=== PATIENT | male | born 1975 | race Caucasian/White ===

== ENCOUNTER 2019-07-02 03:22 | Emergency (ER) | payer OTHER ==
[~2019-07-02] VITALS: Ht 180.3 cm; Wt 84.1 kg
[2019-07-02 03:27] VITALS: Ht 180.3 cm; Wt 84.1 kg
[2019-07-02 03:50] LABS: BASOPHILS 0.2 % (0-2); EOSINOPHILS 3.3 % (0-7); HEMATOCRIT 47.3 % (42.0-54.0); IMMATURE GRANULOCYTES 0.2 % (0-5); LYMPHOCYTES 37.2 % (15-50); MCH 31.8 pg (26.0-34.0); MCHC 33.8 g/dL (31.0-37.0); MEAN PLATELET VOLUME 9.2 fL (7.4-10.4); MONOCYTES 7.2 % (2-11); NEUTROPHILS 51.9 % (40-80); PLATELET COUNT 250 10x3/uL (130-400); RBC 5.03 10x6/uL (4.20-6.10); RDW 12.5 % (11.5-14.5)
[2019-07-02 03:59] LABS: CALC OSMOLALITY 274 mosm/kg (275-300); CALCIUM 9.2 mg/dL (8.5-10.1); CARBON DIOXIDE 29.6 mmol/L (21.0-32.0); CHLORIDE - SERUM 103 mmol/L (98-107); CREATININE - SERUM 1.1 mg/dL (0.6-1.3); GLUCOSE 106 mg/dL (74-106); POTASSIUM - SERUM 3.5 mmol/L (3.5-5.1); SODIUM 137 mmol/L (136-145); UREA NITROGEN 16 mg/dL (7-18); eGFR NON AFRICAN AMERICAN 77 mL/min (90-120)
[2019-07-02 04:00] LABS: INR 0.97 (0.85-1.17); PROTIME 12.9 SECONDS (11.6-15.0)
[2019-07-02 04:16] LABS: ALBUMIN 3.8 g/dL (3.4-5.0); ALKALINE PHOSPHATASE 96 U/L (30-120); ALT (SGPT) 29 U/L (10-68); AMYLASE - SERUM 44 U/L (25-115); BILIRUBIN - TOTAL 0.66 mg/dL (0.2-1.3); CKMB 0.4 U/L (0.0-3.6); CREATINE KINASE 60 UL (21-232); LIPASE 100 U/L (73-393); PROTEIN - SERUM 7.5 g/dL (6.4-8.2)
[2019-07-02 04:19] LABS: TROPONIN-I < 0.017 ng/mL (0.000-0.060)
[2019-07-02] MEDS ORDERED: HYDROCODON-ACE1 EAC7 PO (08:36)
[2019-07-02] MEDS ORDERED: LEVOFLOXACIN500 MG PO (08:36)
[2019-07-02 09:19] VITALS: BP 126/91
[2019-07-05] MEDS ORDERED: LEVOFLOXACIN500 MG PO (15:33)
== END 2019-07-02 09:20 | disposition home or self-care (01) ==
LOC: D.ER 03:22
PROVIDERS: Family Medicine
DX: R10.13 Epigastric pain (principal); K80.20 Calculus of gallbladder without cholecystitis without obstruction; R07.9 Chest pain, unspecified

== ENCOUNTER 2019-07-06 06:39 | Day surgery (SDC) | payer OTHER ==
[~2019-07-06] VITALS: Ht 180.3 cm; Wt 83.9 kg
[~2019-07-06 06:39] MED LIST: HYDROCODON-ACE1 EAC7 PO; LEVOFLOXACIN500 MG PO
[2019-07-06] MEDS ORDERED: HYDROCODON-ACE1 EAC7 PO ×2 (07:41→10:10)
[2019-07-06 07:42] VITALS: BP 97/64; Ht 180.3 cm; Wt 83.9 kg
--- NOTE | 2019-07-06 11:09 | NUR ---
CONSULTED WITH ANESTHESIA - PT RATES PAIN "6" AFTER MAX MEDS. OK TO D/C TO OUTPT PER ANESTHESIA.
== END 2019-07-06 12:50 | disposition home or self-care (01) ==
LOC: D.OPS 06:39 → D.PAN 09:00 → D.OPS 09:15
PROVIDERS: ATTEND Surgery
DX: K80.20 Calculus of gallbladder without cholecystitis without obstruction (principal); F17.200 Nicotine dependence, unspecified, uncomplicated

== ENCOUNTER 2020-05-24 02:23 | Emergency (ER) | payer OTHER ==
[~2020-05-24] VITALS: Ht 180.3 cm; Wt 83.2 kg
[2020-05-24 02:28] VITALS: Ht 180.3 cm; Wt 83.2 kg
[2020-05-24 02:50] LABS: BASOPHILS 0.3 % (0-2); HEMATOCRIT 47.7 % (42.0-54.0); HEMOGLOBIN 16.3 g/dL (13.5-17.5); IMMATURE GRANULOCYTES 0.3 % (0-5); LYMPHOCYTE ABS# 2.18 10x3/uL (1.32-3.57); LYMPHOCYTES 19.1 % (15-50); MCH 31.7 pg (26.0-34.0); MCHC 34.2 g/dL (31.0-37.0); MCV 92.8 fL (80.0-100.0); MEAN PLATELET VOLUME 9.8 fL (7.4-10.4); MONOCYTES 6.2 % (2-11); NEUTROPHIL ABS# 8.24 10x3/uL (1.78-5.38); NEUTROPHILS 72.1 % (40-80); PLATELET COUNT 241 10x3/uL (130-400); RBC 5.14 10x6/uL (4.20-6.10); RDW 12.5 % (11.5-14.5); WBC 11.4 10x3/uL (4.8-10.8)
[2020-05-24 03:02] LABS: CALC OSMOLALITY 279 mosm/kg (275-300); CALCIUM 9.2 mg/dL (8.5-10.1); CARBON DIOXIDE 25.2 mmol/L (21.0-32.0); CHLORIDE - SERUM 101 mmol/L (98-107); CREATININE - SERUM 1.3 mg/dL (0.6-1.3); GLUCOSE 122 mg/dL (74-106); POTASSIUM - SERUM 3.6 mmol/L (3.5-5.1); SODIUM 138 mmol/L (136-145); UREA NITROGEN 22 mg/dL (7-18); eGFR NON AFRICAN AMERICAN 63 mL/min (90-120)
[2020-05-24 03:05] LABS: BILIRUBIN NEGATIVE (NEGATIVE); KETONE SMALL mg/dL (NEGATIVE); NITRITE NEGATIVE (NEGATIVE); UROBILINOGEN NORMAL mg/dL (< 2)
[2020-05-24 03:07] LABS: BACTERIA MODERATE HPF (NONE SEEN); SQUAMOUS EPITHELIAL 0-5 HPF (0-4); WHITE CELLS - URINE 0-5 HPF (0-1)
[2020-05-24 03:11] LABS: ALBUMIN 4.3 g/dL (3.4-5.0); ALKALINE PHOSPHATASE 114 U/L (30-120); ALT (SGPT) 32 U/L (10-68); AMYLASE - SERUM 50 U/L (25-115); BILIRUBIN - TOTAL 2.05 mg/dL (0.2-1.3); LIPASE 104 U/L (73-393); PROTEIN - SERUM 7.6 g/dL (6.4-8.2); TROPONIN-I < 0.017 ng/mL (0.000-0.060)
[2020-05-24 06:15] VITALS: BP 133/74
== END 2020-05-24 06:15 | disposition other institution (70) ==
LOC: D.ER 02:23
PROVIDERS: Family Medicine
DX: N13.2 Hydronephrosis with renal and ureteral calculous obstruction (principal); N17.9 Acute kidney failure, unspecified